=== PATIENT | female | born 1960 | race Caucasian/White ===

== ENCOUNTER 2022-09-18 11:18 | Emergency (ER) | payer BC, SELFPAY ==
[2022-09-18] VITALS (8 sets, daily range): BP systolic 155; BP diastolic 73; PULSE 68–85; RESP 17–25; TEMP 36.6; O2SAT 96–98
--- NOTE | ~2022-09-18 | XR_ITS ---
EXAMINATION: XR chest 2V 09/18/2022 12:51 INDICATION: Heartburn. PROCEDURE: 2 view chest COMPARISON: No prior studies for comparison. FINDINGS: The lungs are clear. The cardiomediastinal silhouette is within normal limits. There are no pleural effusions. There is no pneumothorax suspected. IMPRESSION: 1: NO ACUTE CARDIOPULMONARY DISEASE. Reviewed, dictated and finalized at location L.
--- NOTE | ~2022-09-18 | US_ITS ---
EXAMINATION: US right upper quadrant DATE: 09/18/2022 14:56 INDICATION: epigastric pain TECHNIQUE: Multiple grayscale and Doppler ultrasound images of the right upper quadrant were obtained . COMPARISON: None available. FINDINGS: Pancreas obscured by bowel gas. The liver is normal size with increased echogenicity and no rmal echotexture. No surface nodularity. Normal hepatopetal flow in the main portal vein. The gallbla dder is normal with no abnormal wall thickening, pericholecystic fluid or stones. The common bile oscar t measures 3 mm. There was no sonographic Garcia sign. IMPRESSION: Pancreas obscured by bowel gas. Echogenic liver, most commonly due to steatosis but also can be seen with hepatitis and fibrosis. Reviewed, dictated and finalized at location K.
--- NOTE | 2022-09-18 11:19 | ECG_ITS ---
Measurements Intervals [place] Rate: 73 P: 31 TX: 201 QRS: -33 QRSD: 76 T: 15 QT: 384 QTc: 424 Interpretive Statements SINUS RHYTHM WITH MARKED SINUS ARRHYTHMIA LOW QRS VOLTAGE IN PRECORDIAL LEADS [QRS DEFLECTION < 1.0 mV IN CHEST LEADS] POOR R WAVE PROGRESSION CAN NOT RULE OUT OLD INFERIOR SC NO PREVIOUS ECG AVAILABLE FOR COMPARISON Electronically Signed On 09-18-2022 13:34:35 CDT by Nuha Justice M.D.
[2022-09-18 11:43] LABS: Basophils Percent Auto 0.2 % (0.2-1.2); Eosinophils Percent Auto 0.1 % (0-4.4); Hematocrit 44.6 % (37.0-47.0); Hemoglobin 14.5 g/dL (12.0-15.0); Immature Granulocyte Absolute 0.07 K/mm3 (0.00-0.031); Immature Granulocyte Percent A 0.5 % (0-0.5); Lymphocytes Absolute Auto 0.71 K/mm3 (0.9-3.2); Lymphocytes Percent Auto 5.5 % (18.3-44.2); Mean Corpuscular HGB Conc 32.5 g/dl (32-36); Mean Corpuscular Hemoglobin 28.7 pg (26-34); Mean Corpuscular Volume 88.1 fl (80-100); Mean Platelet Volume 10.2 fl (7.4-10.4); Monocytes Absolute Auto 0.3 K/mm3 (0.1-0.6); Monocytes Percent Auto 2.5 % (2.6-8.5); Neutrophils Absolute Auto 11.9 K/mm3 (1.3-6.7); Neutrophils Percent Auto 91.2 % (45.5-73.1); Platelet Count Result 300 k/mm3 (150-375); Red Blood Count 5.06 M/mm3 (4.2-5.4); Red Cell Distribution Width 13.6 % (11.5-14.5)
[2022-09-18 11:55] LABS: Alanine Aminotransferase 32 U/L (6-35); Albumin Level 4.5 g/dL (3.5-5.1); Alkaline Phosphatase 60 U/L (38-126); Anion Gap 5 mmol/L (8-16); Aspartate Amino Transferase 34 U/L (14-36); Bilirubin,Total 0.7 mg/dL (0.2-1.3); Blood Urea Nitrogen 11 mg/dL (7-17); Calcium 8.8 mg/dL (8.4-10.2); Carbon Dioxide 27 mmol/L (22-30); Chloride 103 mmol/L (98-107); Estimated Glomerular Filt Rate > 60; Glucose 134 mg/dL (65-110); Lipase 44 U/L (23-300); Potassium 4.4 mmol/L (3.4-5.0); Sodium 135 mmol/L (137-145)
[2022-09-18 12:05] LABS: Troponin I < 0.012 ng/mL (0.000-0.034)
[2022-09-18 12:23] LABS: INR 0.9; Prothrombin Time 12.9 Seconds (11.1-14.7)
[2022-09-18 12:24] LABS: Partial Thromboplastin Time 24.5 SECONDS (22.3-36.8)
[2022-09-18] MEDS: ASPIRIN 81 MG CHEWABLE TABLET 324 MG PO (14:51)
[2022-09-18 15:04] LABS: Troponin I < 0.012 ng/mL (0.000-0.034)
[2022-09-18] MEDS: BELLADONNA ALK/PHENOB ELIX 10 ML, MAG HYDROX/ALUMINUM HYD/SIMETH 30 ML, LIDOCAINE HCL 2... PO (15:23)
--- NOTE | 2022-09-18 15:42 | ED.GENADULT ---
HPI - General Adult General Chief complaint: Chest Pain Stated complaint: chest pain since 2299 Time Seen by Provider: 09/18/22 14:14 History of Present Illness HPI narrative: Patient is a 62-year-old female who presents ER with fullness in her epigastrium. Feels like a lump. No radiation into the back or chest or right upper quadrant. Reports she kebabs last night as well as some cucumbers. No history of acid reflux. She has tried no medication for her discomfort. No modifying factors and has not been hungry today. Denies fevers or chills or sweats. No exertional component. Related Data Allergies Allergy/AdvReac Type Severity Reaction Status Date / Time No Known Allergies Allergy Verified 09/18/22 14:28 Review of Systems Review of Systems: All systems reviewed & are unremarkable except as noted in HPI and below Constitutional: Constitutional: Denies chills, Denies fatigue and Denies fever(s) ENT: Denies nasal congestion and Denies sore throat Cardiovascular: Cardiovascular: Denies chest pain, Denies rapid heart rate and Denies radiating jaw, neck or arm pain Respiratory: Respiratory: Denies cough and Denies dyspnea Gastrointestinal: Gastrointestinal: Reports abdominal pain, Reports heartburn, Denies nausea and Denies vomiting PMFSH Past Medical History Medical History (Updated 09/18/22 @ 15:48 by Víctor Spence MD) No pertinent past medical history Surgical History Surgical History (Updated 09/18/22 @ 15:48 by Víctor Spence MD) No pertinent past surgical history Exam Narrative: GENERAL: Well-appearing, morbidly obese, and in no acute distress. HEAD: Normocephalic, atraumatic. EYES: PERRL and EOMI. ENT: Mucous membranes moist. CHEST: Clear to auscultation. No respiratory distress. HEART: Regular rate and rhythm. Normal peripheral pulses. ABDOMEN: Soft, nontender, nondistended. EXTREMITIES: Normal range of motion. No edema. NEURO: Alert and oriented x3. PSYCH: Normal mood and affect. Course Course Emergency Course: Patient resting comfortably. Troponin negative x2. Ultrasound without evidence of cholecystitis. Patient has received a GI cocktail which is resolved her discomfort. Patient felt to have GERD and discussed acid reflux symptoms and treatment. Vital Signs Vital signs: Vital Signs Temperature 97.9 F 09/18/22 11:19 Pulse Rate 68 06/22/23 11:19 Respiratory Rate 18 09/18/22 11:19 Blood Pressure 155/73 H 09/18/22 11:19 Pulse Oximetry 98 09/18/22 11:19 Oxygen Delivery Room Air 09/18/22 11:19 Temperature 97.9 F 09/18/22 11:19 Pulse Rate 68 09/18/22 11:19 Respiratory Rate 18 09/18/22 11:19 Blood Pressure 155/73 H 09/18/22 11:19 Pulse Oximetry 98 09/18/22 11:19 Oxygen Delivery Room Air 09/18/22 11:19 Medical Decision Making Vital Signs Vital Signs: Vital Signs Temperature 97.9 F 09/18/22 11:19 Pulse Rate 68 09/18/22 11:19 Respiratory Rate 18 09/18/22 11:19 Blood Pressure 155/73 H 09/18/22 11:19 Pulse Oximetry 98 09/18/22 11:19 Oxygen Delivery Room Air 09/18/22 11:19 Temperature 97.9 F 09/18/22 11:19 Pulse Rate 68 09/18/22 11:19 Respiratory Rate 18 09/18/22 11:19 Blood Pressure 155/73 H 09/18/22 11:19 Pulse Oximetry 98 09/18/22 11:19 Oxygen Delivery Room Air 09/18/22 11:19 Lab Data 09/18/22 11:27 09/18/22 11:27 Labs: Lab Results 09/18/22 09/18/22 09/18/22 Range/Units 11:27 12:07 14:35 WBC 13.0 H (4.5-10.0) K/mm3 RBC 5.06 (4.2-5.4) M/mm3 Hgb 14.5 (12.0-15.0) g/dL Hct 44.6 (37.0-47.0) % MCV 88.1 (80-100) fl MCH 28.7 (26-34) pg MCHC 32.5 (32-36) g/dl RDW 13.6 (11.5-14.5) % Plt Count 300 (150-375) k/mm3 MPV 10.2 (7.4-10.4) fl Immature Gran % (Auto) 0.5 (0-0.5) % Neut % (Auto) 91.2 H (45.5-73.1) % Lymph % (Auto) 5.5 L (18.3-44.2) % [place] % (Auto) 2.5 L (2.6-8.5)
== END 2022-09-18 16:09 | disposition home or self-care (01) ==
PROVIDERS: Emergency Provider Emergency Medicine
DX: K21.9 Gastro-esophageal reflux disease without esophagitis (principal); R94.31 Abnormal electrocardiogram [ECG] [EKG]; R93.2 Abnormal findings on diagnostic imaging of liver and biliary tract
CPT/HCPCS: 36415; 71046; 76705; 80053; 83690; 84484; 85025; 85610; 85730; 93005; 99284; A9270